=== PATIENT | male | born 1950 | race Caucasian/White ===

== ENCOUNTER → 2023-02-07 11:13 | Outpatient (CLI) | payer MEDICARE, SELFPAY | PROVIDERS: PCP Student in an Organized Health Care Education/Training Program; Referring Provider Internal Medicine; Visit Provider Internal Medicine | DX: J84.89 Other specified interstitial pulmonary diseases (principal); J98.8 Other specified respiratory disorders | CPT/HCPCS: 94010; 94729 ==